=== PATIENT | male | born 1935 | race Two or more races ===

== ENCOUNTER → 2018-02-12 08:07 | Outpatient (CLI) | payer MEDICARE, SELFPAY ==
--- NOTE | 2018-02-12 08:23 | FL_ITS ---
EXAM: Barium swallow/esophagram. INDICATION: ITS.REASON: difficulty swallowing ORDERING PHYSICIAN: Juanito Posada MD PATIENT AGE: 82 years COMPARISON: None TECHNIQUE: In the upright position the patient was observed to swallow barium in both the AP and lateral view. The cervical esophagus was examined under fluoroscopy with images obtained. The patient was then placed prone in the right anterior oblique position and was observed to swallow barium with Valsalva technique . FLUOROSCOPY TIME: 1 minute and 20 seconds FINDINGS: There was no evidence of aspiration. There was normal peristalsis. No filling defects or mucosal abnormalities. No masses or strictures. There is a small sliding hiatal hernia IMPRESSION: Small sliding hiatal hernia otherwise negative barium swallow
[2018-02-12 09:14] LABS: Free T4 (Free Thyroxine) 1.13 ng/dl (0.76-1.46); Thyroid Stimulating Hormone 0.46 uIU/ml (0.358-3.740)
[2018-02-13 16:05] LABS: Thyroid Peroxidase Antibodies 27 IU/mL (0-34); Thyroid Stimulating Immunoglob <0.10 IU/L (0.00-0.55)
== END ==
PROVIDERS: PCP Family Medicine; Visit Provider Otolaryngology
DX: R13.10 Dysphagia, unspecified (principal); R49.0 Dysphonia; E03.9 Hypothyroidism, unspecified
CPT/HCPCS: 36415; 74220; 84439; 84443; 84445; 86376

== ENCOUNTER → 2018-11-01 13:23 | Outpatient (CLI) | payer MEDICARE, SELFPAY ==
--- NOTE | 2018-11-01 13:51 | XR_ITS ---
XR chest 2V HISTORY: ITS.REASON: dyspnea ORDERING PHYSICIAN: Jayant Groves MD PATIENT AGE: 83 years COMPARISON: None FINDINGS: The cardiomediastinal silhouette and pulmonary vascularity are within normal limits. Coronary artery stents are present. The lungs are clear without infiltrates, suspicious nodules, or pleural effusions. Mild biapical pleural thickening noted No acute bony abnormalities. IMPRESSION: Coronary artery stents are present, no acute finding
[2018-11-01 14:03] LABS: Basophils # 0.1 K/mm3 (0-0.2); Basophils % 0.8 % (0.1-2.0); Eosinophils # 0.4 K/mm3 (0.0-0.4); Hematocrit 44.9 % (42.0-52.0); Hemoglobin 14.6 g/dL (14.1-18.0); Lymphocytes # 1.9 K/mm3 (0.7-4.5); Lymphocytes % 28.5 % (10-50); Mean Corpuscular HGB Conc 32.4 g/dL (31.8-35.4); Mean Corpuscular Hemoglobin 29.9 pg (27.0-31.2); Mean Corpuscular Volume 92.2 fl (80-94); Mean Platelet Volume 7.7 fl (7.4-10.4); Monocytes # 0.3 K/mm3 (0.1-1.0); Monocytes % 3.8 % (1.7-9.3); Neutrophils % 60.8 % (37.0-80.0); Platelet Count 205 K/mm3 (142-424); Red Blood Count 4.87 M/mm3 (4.60-6.20); Red Cell Distribution Width 14.1 % (11.5-17.5); White Blood Count 6.5 K/mm3 (4.8-10.8)
--- NOTE | 2018-11-01 14:33 | CA_ITS ---
PROCEDURE: 2-D M-mode and color Doppler study INDICATIONS FOR THE TEST: Chest pain X COPD Heart Murmur Tobacco Smoking Palpitations Fatigue Syncope Edema HypertensionXDiabetes Mellitus Rheumatic Fever SOBXDOEXObesity HyperlipidemiaX Family History HD Additional History CAD,CABG,NUMEROUS STENTS PATIENT INFORMATION HEIGHT: 66 WEIGHT:147 GENDER: Male B/P:183/86 2-D/M-MODE INTERPRETATION: 2-D MEASUREMENTS OBSERVED VALUES IN CMS Right Ventricular Dimension (RVDd) 2.2 Interventricular Septum (Thickness)(IVsd) 1.2 Left Ventricular Internal Dimensions(LVIDd) 4.1 Left Ventricular Posterior Wall (Thickness)(LVPWd) 1.2 Aortic Root 3.6 Aortic Cusp Separation 1.3 Left Atrial Dimensions (LAD) 4.5 2D 1. Left atrium is mildly enlarged, left ventricle is normal size, moderate concentric left ventricular hypertrophy, visually estimated ejection fraction 55% with no regional wall motion abnormality. 2. The right atrium and right ventricle are normal size and contractility. 3. The aortic valve is thickened and calcified leaflet continue to display mobility. 4. The mitral valve has mitral annular calcification, leaflets are minimally thickened. 5. The tricuspid valve is grossly normal. 6. The pulmonic valve is poorly visualized. 7. No significant pericardial effusion noted. DOPPLER INTERROGATION: Doppler interrogation of the aortic, mitral and tricuspid valvular presence of mild aortic, mild mitral and tricuspid regurgitation, tricuspid regurgitation jet velocity is inadequate for calculation of the right ventricular systolic pressure, grade 2 diastolic dysfunction seen with tissue Doppler evidence of raised left atrial pressure. CONCLUSION: 1. Mildly enlarged left atrium, normal left ventricular size, moderate concentric left ventricular hypertrophy, visually estimated ejection fraction of 55% with no regional wall motion abnormality, grade 2 diastolic dysfunction seen with tissue Doppler evidence of raised left atrial pressure. 2. Thickened and calcified aortic valve without Doppler evidence of aortic stenosis, there is mild aortic insufficiency. 3. Mild mitral and tricuspid regurgitation. 4. No significant pericardial effusion noted.
[2018-11-01 15:03] LABS: Bilirubin,Direct 0.2 mg/dL (0.0-0.2)
[2018-11-01 15:09] LABS: Alanine Aminotransferase 29 U/L (12-78); Albumin Level 3.8 gm/dL (3.4-5.0); Albumin/Globulin Ratio 1.1 (1.1-1.8); Alkaline Phosphatase 90 U/L (46-116); Anion Gap 12.7 mEq/L (5-15); Aspartate Amino Transferase 26 U/L (15-37); Bilirubin,Total 1.2 mg/dL (0.2-1.0); Blood Urea Nitrogen 20 mg/dL (7-18); Calcium 9.4 mg/dL (8.5-10.1); Carbon Dioxide 28 mmol/L (21.0-32.0); Chloride 102 mmol/L (98-107); Creatinine,Serum 1.12 mg/dL (0.70-1.30); Estimated Glomerular Filt Rate 63 ml/min (>60); Free T4 (Free Thyroxine) 1.38 ng/dl (0.76-1.46); GFR (African American) 76 ML/MIN (>60); Globulin 3.4 gm/dl (1.3-3.2); Glucose 127 mg/dL (74-106); Potassium 3.7 mmoL/L (3.5-5.1); Sodium 139 mmol/L (136-145); Thyroid Stimulating Hormone 0.15 uIU/ml (0.358-3.740); Total Protein,Serum 7.2 gm/dL (6.4-8.2)
== END ==
PROVIDERS: PCP Family Medicine; Visit Provider Internal Medicine
DX: I11.9 Hypertensive heart disease without heart failure; E78.49 Other hyperlipidemia; I25.10 Atherosclerotic heart disease of native coronary artery without angina pectoris; I48.0 Paroxysmal atrial fibrillation; R06.02 Shortness of breath; R07.89 Other chest pain; Z95.1 Presence of aortocoronary bypass graft
CPT/HCPCS: 36415; 71046; 80053; 82248; 83880; 84439; 84443; 85025; 93306

== ENCOUNTER → 2019-04-24 12:56 | Outpatient (CLI) | payer MEDICARE, SELFPAY ==
--- NOTE | 2019-04-24 13:02 | US_ITS ---
APPROVED REPORT Exam Type: Ankle to Brachial Index Customer Quality Engineer: RT Isela(R) Indications Claudication: Bilaterally Rest Pain: Right CAD Risk Factors Hypertension CAD Hyperlipidemia TIA/CVA History History of Smoking Pressures/Indices Right Indices Left Indices Brachial 226.00 mmHg Brachial 225.00 mmHg Low Thigh 230.00 mmHg 1.02 Low Thigh 227.00 mmHg 1.00 Calf 226.00 mmHg 1.00 Calf 224.00 mmHg 0.99 Ankle(PT) 236.00 mmHg 1.04 Ankle(PT) 224.00 mmHg 0.99 Ankle(DP) 227.00 mmHg 1.00 Ankle(DP) 172.00 mmHg 0.76 Digit 165.00 mmHg 0.73 Digit 143.00 mmHg 0.63 Conclusion RT YOSVANY=1.0 LT YOSVANY=1.0 RT TBI=0.7 LT TBI=0.6 Normal pulses Normal wavefoms No evidence significant arterial disease throughout the right and left lower extremities as evidenced by normal resting PVR waveforms and normal resting indices. Electronically signed by : Fabio Courtney MD 04/26/2019 17:35:44
--- NOTE | 2019-04-24 13:02 | CT_ITS ---
PROCEDURE: CT HEAD/BRAIN WO CON CLINICAL INDICATION: tia TIAs, pain COMPARISON: No exams were available for comparison TECHNIQUE: Axial images obtained. All CT scans at the facility use one or more dose reduction, viz: automated exposure control, ma/kV adjustment per patient size (including targeted exams where dose is matched to indication, i.e. head), or iterative reconstruction technique. FINDINGS: No midline shift, mass effect, intracranial hemorrhage, hydrocephalus, or extra-axial fluid collection is evident. There is generalized atrophy with hypoattenuation of the periventricular white matter consistent with microangiopathic changes. The calvarium has an unremarkable appearance. No mastoid effusion. No sinus air-fluid level. There is generalized atrophy with hypoattenuation of the periventricular white matter consistent with microangiopathic changes.. No midline shift mass effect or hydrocephalus. There is a small area of increased density in the left occipital region in the subdural area. This has a straight transverse edge and could represent a hematoma fluid level which may be seen with subdural hematomas. Consider MRI of the brain for further evaluation for confirmation. No other significant anomalies are evident IMPRESSION: Possible heme fluid level in the left occipital lobe raising the suspicion of a small subdural hematoma. I suppose this could represent some type of artifact from the adjacent dural sinus. Suggest MRI of the brain for further evaluation. Significant findings called to Dr. Groves 04/24/2019 at 4:35 p.m. Dictated by: Fabio Courtney MD 04/24/2019 16:39 Electronically signed by Fabio Courtney MD in [place] 04/24/2019 16:39
== END ==
PROVIDERS: PCP Family Medicine; Visit Provider Internal Medicine
DX: G45.9 Transient cerebral ischemic attack, unspecified (principal); I73.9 Peripheral vascular disease, unspecified; M79.604 Pain in right leg; M79.605 Pain in left leg
CPT/HCPCS: 70450; 93923

== ENCOUNTER → 2019-10-22 09:46 | Outpatient (CLI) | payer MEDICARE, SELFPAY ==
--- NOTE | 2019-10-22 09:48 | CA_ITS ---
APPROVED REPORT Press Operator: MICHAELA Laterality: Bilateral Study Quality: FairTechnically Difficult, Due to . Indications: SEAN, CAD, hx of CABG, HTN, HLD, dizziness, AFIB Risk Factors Hypertension: years Hyperlipidemia Doppler Spectral Velocity Analysis ECA (R) 111.40/14.60 cm/s ECA (L) 76.40/10.90 cm/s dICA (R) 59.10/16.50 cm/s dICA (L) 71.10/14.60 cm/s pICA (R) 150.80/18.00 cm/s Shakir (L) 76.30/18.80 cm/s pICA (L) 79.70/16.30 cm/s dCCA (R) 55.60/12.30 cm/s pCCA (R) 72.70/10.70 cm/s dCCA (L) 63.70/10.30 cm/s ICA/CCA 2.70 pCCA (L) 95.10/12.90 cm/s Vert (L) 52.30/12.00 cm/s ICA/CCA 1.30 Conclusion Duplex evaluation demonstrates stenosis of the right proximal internal carotid artery in the range of 50-69% Duplex evaluation demonstrates stenosis of the left proximal internal carotid artery in the range of 20-49% Electronically signed by : Fabio Courtney MD 10/22/2019 19:04:31
== END ==
PROVIDERS: PCP Family Medicine; Visit Provider Nurse Practitioner Family
DX: R42 Dizziness and giddiness; I65.23 Occlusion and stenosis of bilateral carotid arteries; M54.2 Cervicalgia
CPT/HCPCS: 93880

== ENCOUNTER → 2020-01-07 10:29 | Outpatient (CLI) | payer MEDICARE, SELFPAY ==
[2020-01-07 11:24] LABS: Basophils % 0.6 % (0.1-2.0); Eosinophils # 0.4 K/mm3 (0.0-0.4); Eosinophils % 5.6 % (0.1-12.0); Hematocrit 45.9 % (42.0-52.0); Lymphocytes # 1.8 K/mm3 (0.7-4.5); Lymphocytes % 25.2 % (10-50); Mean Corpuscular HGB Conc 32.8 g/dL (31.8-35.4); Mean Corpuscular Hemoglobin 30.6 pg (27.0-31.2); Mean Corpuscular Volume 93.5 fl (80-94); Mean Platelet Volume 8.5 fl (7.4-10.4); Monocytes # 0.3 K/mm3 (0.1-1.0); Monocytes % 4.2 % (1.7-9.3); Neutrophils # 4.5 K/mm3 (1.8-7.8); Neutrophils % 64.4 % (37.0-80.0); Platelet Count 192 K/mm3 (142-424); Red Blood Count 4.91 M/mm3 (4.60-6.20); Red Cell Distribution Width 14.4 % (11.5-17.5)
[2020-01-07 11:40] LABS: Chloride 100 mmol/L (98-107); Potassium 5.2 mmoL/L (3.5-5.1); Sodium 139 mmol/L (136-145)
[2020-01-07 11:43] LABS: Anion Gap 13.2 mEq/L (5-15); Blood Urea Nitrogen 19 mg/dl (9-20); Calcium 9.8 mg/dl (8.4-10.2); Carbon Dioxide 31 mmol/L (22.0-30.0); Estimated Glomerular Filt Rate 64 ml/min (>60); GFR (African American) 77 ML/MIN (>60); Glucose 95 mg/dl (74-100)
== END ==
PROVIDERS: Visit Provider Internal Medicine
DX: R06.02 Shortness of breath; E78.2 Mixed hyperlipidemia; G45.9 Transient cerebral ischemic attack, unspecified; I11.9 Hypertensive heart disease without heart failure; I25.118 Atherosclerotic heart disease of native coronary artery with other forms of angina pectoris; I48.0 Paroxysmal atrial fibrillation; M54.2 Cervicalgia; R60.9 Edema, unspecified
CPT/HCPCS: 36415; 80048; 85025

== ENCOUNTER → 2021-11-01 11:53 | Outpatient (CLI) | payer MEDICARE, SELFPAY ==
[2021-11-01 12:11] LABS: Coronavirus 19, PCR Not Detected (NotDetected); Influenza A, PCR Not Detected (NotDetected); Influenza B, PCR Not Detected (NotDetected)
== END ==
PROVIDERS: PCP Family Medicine; Visit Provider Internal Medicine
DX: Z01.812 Encounter for preprocedural laboratory examination; Z11.52 Encounter for screening for COVID-19; R06.02 Shortness of breath; I20.8 Other forms of angina pectoris; I48.0 Paroxysmal atrial fibrillation; I65.23 Occlusion and stenosis of bilateral carotid arteries; I73.00 Raynaud's syndrome without gangrene; R60.9 Edema, unspecified
CPT/HCPCS: C9803; U0003; U0005

== ENCOUNTER 2021-11-11 06:24 | Observation (INO) | payer MEDICARE, SELFPAY ==
[2021-11-08 13:55] VITALS: BMI 24.7
[2021-11-11] VITALS (17 sets, daily range): BP systolic 104–192; BP diastolic 61–110; PULSE 50–85; RESP 18–20; TEMP 36.3–36.7; O2SAT 92–96; BMI 24.8; BMI 24.5
--- NOTE | 2021-11-11 06:55 | HMH.ANESCL ---
[facility] Anesthesia Checklist - Patient Identification Patient Identification: Arm Band - Structural Data Admitted From: Home Planned Operative Procedure/s: Peg placement Consent for Planned Operative Procedure(s) Verified: Yes - NPO Status Verified Time NPO: 00:00 - Additional verifications Anesthesia Reactions: No Hx Blood Transfusions: Yes Blood Transfusion Reaction: No - Airway Assessment C-Spine Mobility Assessed: Yes TMJ Mobility Assessed: Yes Dentition: Dentures-good fit - Neurological Assessment Level of Consciousness: Awake Hx Seizures: No Numbness or tingling in extremities: No - Anesthesia Plan Anesthesia Risk discussed: Yes Anesthesia Plan: Verified ASA Class: III Anesthesia Type: MAC [facility] History I have reviewed the patient's past medical history: Yes Medical History: Reports:: Atrial Fibrillation, Chronic Obstructive Pulmonary Disease (COPD), Coronary Artery Disease, Gastroesophageal Reflux Disease(GERD), Hyperlipidemia, Hypertension Denies:: Cancer, Diabetes Mellitus Type 1, Diabetes Mellitus Type 2, Internal Pacemaker, MRSA, Seizures *Have you ever received a pneumonia vaccine?: Yes *Have you received a flu vaccine this season?: Yes Other Medical History: Reports: Hypothyroidism. Denies: Blood Transfusion Reaction Anesthesia experience/problems:: None Laterality Cases: Right: Arthroscopy Shoulder, Bilateral: Other Other Surgeries: Yes: No Previous Surgery, Angioplasty, Appendectomy, Cardiac Catheterization, Colonoscopy, Hernia Repair. No: Pacemaker Amputation: No Fractures: Yes - *Social History Last grade of school completed: High school graduate Smoking Status: Never smoker Alcohol Intake: never Substance Use Type: denies use *Occupational Status:: unemployed, disabled Housing: house *Travel in the last 8 weeks: None Family Hx:: Heart Attack
[2021-11-11 07:00] LABS: Coronavirus 19, PCR Not Detected (NotDetected); Influenza A, PCR Not Detected (NotDetected); Influenza B, PCR Not Detected (NotDetected)
--- NOTE | 2021-11-11 07:15 | HMH.GSHP ---
HPI HPI: This is an 86-year-old gentleman with increasing feeding difficulty. He has been diagnosed with significant esophageal spasm with associated dysphagia. Over the past few months he has had fairly significant weight loss. The cardiology service has requested percutaneous endoscopic gastrostomy tube placement. [facility] History Medical History: Reports:: Atrial Fibrillation, Chronic Obstructive Pulmonary Disease (COPD), Coronary Artery Disease, Gastroesophageal Reflux Disease(GERD), Hyperlipidemia, Hypertension Denies:: Cancer, Diabetes Mellitus Type 1, Diabetes Mellitus Type 2, Internal Pacemaker, MRSA, Seizures *Have you ever received a pneumonia vaccine?: Yes *Have you received a flu vaccine this season?: Yes Other Medical History: Reports: Hypothyroidism. Denies: Blood Transfusion Reaction Anesthesia experience/problems:: None Laterality Cases: Right: Arthroscopy Shoulder, Bilateral: Other Other Surgeries: Yes: No Previous Surgery, Angioplasty, Appendectomy, Cardiac Catheterization, Colonoscopy, Hernia Repair. No: Pacemaker Amputation: No Fractures: Yes - *Social History Last grade of school completed: High school graduate Smoking Status: Never smoker Alcohol Intake: never Substance Use Type: denies use *Occupational Status:: unemployed, disabled Housing: house *Travel in the last 8 weeks: None Family Hx:: Heart Attack Review of Systems - Constitutional Denies body ache(s) - Eyes Denies change in vision - ENT Reports difficulty swallowing - *Cardiovascular Denies chest pain - *Respiratory Denies cough - *Gastrointestinal Denies abdominal pain - *Genitourinary Denies difficulty urinating - *Musculoskeletal Denies deformity - Integumentary/Breasts Denies new lesions - *Neurologic Denies abnormal movements - Psychiatric Denies anxiety - Endocrine Denies cold intolerance - Hematologic/Lymphatic Denies easy bleeding - Allergic/Immunologic Denies GI upset with certain foods Meds Home Medications Medication Instructions Recorded Confirmed Type finasteride 5 mg tablet 5 mg PO DAILY 06/19/19 11/01/21 History nitroglycerin 0.4 mg sublingual 0.4 mg SUBLINGUAL Q5M PRN #30 tab 04/22/20 11/01/21 Rx tablet clopidogrel 75 mg tablet 75 mg PO DAILY tab 07/07/20 11/01/21 History prednisone 10 mg tablet 10 mg PO DAILY tab 07/07/20 11/01/21 History carbidopa ER 25 mg-levodopa 100 mg 2 tab PO QID tab 08/27/20 11/01/21 History tablet,extended release hydrocodone 5 mg-acetaminophen 325 1 tab PO DAILY PRN tab 08/27/20 11/01/21 History mg tablet pantoprazole 40 mg tablet,delayed 40 mg PO DAILY tab 08/27/20 11/01/21 History release clonidine HCl 0.1 mg tablet 0.1 mg PO TID PRN #90 tab 11/01/21 11/01/21 Rx levothyroxine 112 mcg tablet 112 mcg PO DAILY tab 11/01/21 11/01/21 History Budesonide/Formoterol Fumarate 2 puff IH BID 11/11/21 History [Symbicort 160-4.5 Mcg Inhaler] Sulfamethoxazole/Trimethoprim 1 tab PO BID 11/11/21 History [Sulfamethoxazole-Tmp Ds Tablet*] Allergies Allergy/AdvReac Type Severity Reaction Status Date / Time ketorolac Allergy Verified 11/01/21 11:07 Penicillins Allergy Verified 11/01/21 11:07 tamsulosin AdvReac Verified 11/01/21 11:07 Exam Vital signs and Labs for Last 24 Hours: Temp Pulse Resp BP Pulse Ox 97.8 F 70 18 171/97 H 95 11/11/21 06:37 11/11/21 06:37 11/11/21 06:37 11/11/21 06:37 11/11/21 06:37 I & O for Last 24 hours: Intake & Output 11/08/21 11/09/21 11/10/21 11/11/21 11:59 11:59 11:59 11:59 Weight 135 lb - Constitutional no acute distress - *Routine HEENT Exam Head: Present: normocephalic Eye: Present: EOMI ENT: Present: mucous membranes moist - *Routine Neck Exam Present: full ROM - Routine Chest/Breast/Axilla Exam Chest wall: Absent: tenderness - *Routine Respiratory Exam Absent: respiratory distress - *Routine Cardiovascular Exam Absent: tachycardia - *
--- NOTE | 2021-11-11 07:41 | HMH.SCOPE ---
- Procedure: Date: 11/11/21 Patient Date of :: 1935 Procedure Performed:: Percutaneous endoscopic gastrostomy tube placement Esophagogastroscopy with biopsy Indications:: Feeding difficulty Esophageal spasm Dysphagia Performing Provider:: Kvng Meza MD Referring Provider:: Dr. Groves Sedation:: Monitored anesthesia care Procedure:: After informed consent was obtained the patient was taken to the endoscopy suite. Sedation ensued after the patient was transferred to the left lateral decubitus position. Pulse, blood pressure, and oxygen saturation were monitored throughout the procedure. The endoscope was advanced into the gastric lumen. After insufflation completed transillumination and impulse both confirmed. After infiltration local anesthetic a small transverse incision was made at the site of maximal impulse/transillumination. A large bore Angiocath was placed into the gastric lumen under direct visualization. The guidewire was placed through the Angiocath and retrieved via snare. The gastrostomy tube was secured to the snare and then pulled through. The gastrostomy tube was secured at 3 cm. The endoscope was readvanced. The bumper was in good position. No active bleeding was noted. Retroflexion revealed a polypoid small mass-like lesion in the proximal gastric body. Multiple biopsies obtained. The gastroscope was carefully removed and the patient was transferred to recovery in stable condition. Please see findings and specimens below for detail. Findings:: PEG anchored at 3 cm Lobulated polypoid small mass-like lesion in the proximal gastric body biopsied Specimens:: Multiple biopsies of proximal gastric body lobulated polypoid lesion Recommendations:: Post PEG orders written Follow-up pathology Complications:: No immediate Estimated blood obtained (mL): 5
--- NOTE | 2021-11-11 07:44 | HMH.PHAVTE ---
[facility] Pharmacy VTE Monitoring - Patient Demographics Admission date: 11/11/21 Report Date: 11/11/21 Time: 07:44 Allergies/Adverse Reactions: Patient Allergies ketorolac Allergy (Verified 11/01/21 11:07) Penicillins Allergy (Verified 11/01/21 11:07) tamsulosin Adverse Reaction (Verified 11/01/21 11:07) Height: 1.57 m Weight: 61.235 kg Patient Problems: Current Active Problems Feeding difficulty (Acute) Esophageal spasm (Acute) Dysphagia (Acute) - VTE Risk Clinical Trial Participant: No - Prophylaxis VTE Prophylaxis Ordered?: Yes Types of VTE Prophylaxis: TEDS Knee High
--- NOTE | 2021-11-11 10:26 | DIET.NUTRFU ---
Addendum entered by Mila Perez RD, LD 11/11/21 11:00: based on reported hx, can start regular diet when medically appropriate. IVF started post op. Original Note: S/p PEG placement, RD consulted. Spoke to in great depth about diet at home. Patient eats 3 meals/day, breakfast and dinner being large. He has been maintaining weight at 134#. Denies any chewing or swallowing difficulty with solids, but with liquids sometimes he chokes. She reports milk and ice cream are the worst d/t the extra phloem. She said he has been to [facility] in the past, they have tried thickened liquids but he will not drink them, he has also had botox to vocal cords for temporary improvement. Was noted to have PNA earlier this year, no indication of aspiration. He takes his pills orally with water, no issues. Hydration is the concern, will start with a flush. At home she indicated he drinks 1 cups of coffee with breakfast and then 1/2 of sprite and then just sips all day but nothing significant, she said maybe 2-3 8oz of fluid/day. Based on CBW of 134# his fluid needs with no hx of CHF are ~1800ml/day. Therefore will start with 300ml 5xday, it is recommended to change syringe every 2 days therefore will need 15-20/month syringes/month. Nursing to teach administration techniques. Spoke to clinical social worker about supplies may need at home-syringes. Encouraged to follow up with PCP if patient declines in meal intake, looses weight or swallowing issues worsen, at that point he may need feedings via PEG. Denies any issues of N/V or constipation/diarrhea. Has hx of SBO with resection, he still eats nuts and raw salads but dislikes most fruit. Reviewed POC with nursing.
--- NOTE | 2021-11-11 10:58 | HMH.PHAINT ---
MEDICATION RECONCILIATION COMPLETED ON PATIENT USING EXTERNAL FILL HISTORY FROM PHARMACY. -CORY LADD, YASD
--- NOTE | 2021-11-11 16:12 | PC.NURSE ---
RN aware of elevated bp.
[2021-11-12] VITALS: BP 153/87; PULSE 75; RESP 20; TEMP 36.7; O2SAT 93
[2021-11-12 04:00] VITALS: BP 136/78; PULSE 78; RESP 20; TEMP 36.8; O2SAT 94
--- NOTE | 2021-11-12 04:56 | PC.NURSE ---
PT S/P PEG PLACEMENT, PEG TUBE REMAINS AT 3 TO HOOD BAG, DRSG CDI WITH ABD BINDER IN PLACE, PT ALERT TO NAME, BUT CONFUSED AT TIMES TO PLACE AND TIME, VSS, B/P DOWN AFTER CLONIDINE GIVEN ON DAY SHIFT, PT INCONTINENT, NO OTHER ISSUES NOTED
[2021-11-12 05:00] VITALS: BMI 25.7
--- NOTE | 2021-11-12 06:58 | HMH.GSPN ---
Subjective Patient reports: no new complaints Progress Note: A&P (1) Feeding difficulty Status: Acute (2) Esophageal spasm Status: Acute (3) Dysphagia Status: Acute Assessment and Plan for All Diagnoses:: Discussed with Dr. Meza all orders per Dr. Meza. Exam Vital signs and Labs for Last 24 Hours: Temp Pulse Resp BP Pulse Ox 98.2 F 78 20 136/78 94 L 11/12/21 04:00 11/12/21 04:00 11/12/21 04:00 11/12/21 04:00 11/12/21 04:00 Laboratory Results - last 24 hr 11/11/21 06:55: SARS-CoV-2 (PCR) Not detected, Influenza A Untype (PCR) Not detected, Influenza Type B (PCR) Not detected I & O for Last 24 hours: Intake & Output 11/09/21 11/10/21 11/11/21 11/12/21 11:59 11:59 11:59 11:59 Intake Total 3069 / 3069 Balance 3069 / 3069 Weight 135 lb 134 lb 15.825 oz 139 lb 9.6 oz - *Routine Abdominal Exam Present: soft Comments: PEG site clean. No appreciable tenderness.
--- NOTE | 2021-11-12 07:26 | HMH.DCSUM ---
General - General Admission date:: 11/11/21 Discharge date: 11/12/21 HPI HPI: This is an 86-year-old gentleman with increasing feeding difficulty. He has been diagnosed with significant esophageal spasm with associated dysphagia. Over the past few months he has had fairly significant weight loss. The cardiology service has requested percutaneous endoscopic gastrostomy tube placement. Hospital Course Hospital Course: The patient underwent PEG placement (see procedure report for detail). The Dietary Service was consulted for initiation of tube feeds. He did receive Clonidine as needed for elevated blood pressure. He showed no evidence of procedural complication and was deemed appropriate for discharge on the morning of POD1. Condition at discharge: At the time of discharge he was afebrile with stable and normal vital signs. NOTE: PEG anchored at 3cm. Objective Vital signs: Temp Pulse Resp BP Pulse Ox 98.2 F 78 20 136/78 94 L 11/12/21 04:00 11/12/21 04:00 11/12/21 04:00 11/12/21 04:00 11/12/21 04:00 no acute distress - *Routine HEENT Exam Head: Present: normocephalic Eye: Present: EOMI ENT: Present: mucous membranes moist - *Routine Neck Exam Present: full ROM - Routine Chest/Breast/Axilla Exam Chest wall: Absent: tenderness - *Routine Respiratory Exam Absent: respiratory distress - *Routine Cardiovascular Exam Absent: tachycardia - *Routine Abdominal Exam Present: soft - *Routine Rectal Exam Patient deferred: visual exam - *Routine Exam Patient deferred: penile exam - *Routine Extremities Exam Absent: cyanosis - Routine Back/Spine/Pelvis Exam Back/Spine: Present: full ROM - *Routine Skin Exam Absent: erythema - *Routine Neurological Exam Present: alert - Routine Psychiatric Exam Present: normal affect DS: Diagnosis - Discharge Diagnosis (1) Feeding difficulty Status: Acute (2) Esophageal spasm Status: Acute (3) Dysphagia Status: Acute Discharge Plan - Patient Discharge Instructions ACTIVITY: Continue current activity DIET: other (as per dietary ) Patient Instructions: How to Care for Your PEG Tube, DI for Percutaneous Endoscopic Gastrostomy (PEG), DI for Surgical Site Infection - Follow up Plan Follow up with: Kvng Meza MD [Staff Physician] - (1-2 weeks) Disposition: Home, Self-Care Condition at discharge:: Stable Home Medications: Home Medications Medication Instructions Recorded Confirmed Type finasteride 5 mg tablet 5 mg PO DAILY 06/19/19 11/11/21 History nitroglycerin 0.4 mg sublingual 0.4 mg SUBLINGUAL Q5M PRN #30 tab 04/22/20 11/11/21 Rx tablet clopidogrel 75 mg tablet 75 mg PO DAILY tab 07/07/20 11/11/21 History prednisone 10 mg tablet 10 mg PO DAILY tab 07/07/20 11/11/21 History carbidopa ER 25 mg-levodopa 100 mg 2 tab PO QID tab 08/27/20 11/11/21 History tablet,extended release hydrocodone 5 mg-acetaminophen 325 1 tab PO DAILYP PRN tab 08/27/20 11/11/21 History mg tablet pantoprazole 40 mg tablet,delayed 40 mg PO BID tab 08/27/20 11/11/21 History release levothyroxine 112 mcg tablet 112 mcg PO DAILY tab 11/01/21 11/11/21 History cloNIDine HCL [cloNIDine 0.1mg 0.1 mg PO TIDP PRN 11/11/21 11/11/21 History Tablet] Prescriptions/Medication Reconciliation: Continued nitroglycerin 0.4 mg sublingual tablet 0.4 mg SUBLINGUAL Q5M PRN #30 tab PRN Reason: chest pain clopidogrel 75 mg tablet 75 mg PO DAILY tab carbidopa ER 25 mg-levodopa 100 mg tablet,extended release 2 tab PO QID tab pantoprazole 40 mg tablet,delayed release 40 mg PO BID tab levothyroxine 112 mcg tablet 112 mcg PO DAILY tab finasteride 5 mg tablet 5 mg PO DAILY prednisone 10 mg tablet 10 mg PO DAILY tab hydrocodone 5 mg-acetaminophen 325 mg tablet 1 tab PO DAILYP PRN tab PRN Reason: pain cloNIDine HCL [cloNIDine 0.1mg Tablet] 0.1 mg PO TIDP PRN PRN Reason: hype
[2021-11-12 08:00] VITALS: BP 154/80; PULSE 75; RESP 18; TEMP 36.6; O2SAT 94; O2SAT 95
--- NOTE | 2021-11-12 09:35 | SW/DCPLANNER ---
Addendum entered by Vidhya Shanks 11/12/21 09:59: [facility] stated that services will start Monday for this patient. Nursing staff has educated on peg tub flushes during admission. Original Note: Patient information/order has been faxed to [facility] for : peg tube education/SN/PT/OT. Per patient's request patient information/order has been faxed to [facility]. I will follow up with [facility] once information is reviewed. Patient will discharge home later today.
--- NOTE | 2021-11-12 09:37 | DIET.NUTRFU ---
Patient plans to discharge today, nursing reports he tolerated flush. received teaching on the flush and PEG care. Also was setup with homecare to complete any further teaching needed and and to address any issues in home setting. Patient was started on regular diet for lunch and dinner yesterday and consumed 50% with no issues. As Parkinson's advances patient may need nutritional support via PEG, but did not seem necessary at this time d/t stable wt and reported good intake with only concern of hydration. Flush ordered 300ml 5xday, nursing suggested coordinate that with his sinemet dose. This RD continues to be available for any questions or concerns
--- NOTE | 2021-11-15 15:22 | CARE MANAGER ---
Post-discharge phone call with patient, states doing well and has no needs at this time. Home Health is coming and he is utilizing PEG tube as ordered.
== END 2021-11-12 09:09 | disposition home or self-care (01) ==
LOC: 2ND 06:25
PROVIDERS: Admitting Provider Surgery; PCP Family Medicine; Visit Provider Surgery
PROC: 0DH63UZ Insertion of Feeding Device into Stomach, Percutaneous Approach (ICD-10-PCS; CPT 43246; principal; 2021-11-11 07:30)
DX: K22.4 Dyskinesia of esophagus (principal); R63.30 Feeding difficulties, unspecified; R13.10 Dysphagia, unspecified; K21.9 Gastro-esophageal reflux disease without esophagitis; I25.10 Atherosclerotic heart disease of native coronary artery without angina pectoris; J44.9 Chronic obstructive pulmonary disease, unspecified; I48.91 Unspecified atrial fibrillation; I10 Essential (primary) hypertension; E78.5 Hyperlipidemia, unspecified; Z79.899 Other long term (current) drug therapy; Z20.822 Contact with and (suspected) exposure to COVID-19
CPT/HCPCS: 43246; 43254; G0378; 88305; 96374; C9803; U0003; U0005

== ENCOUNTER → 2022-04-12 12:08 | Outpatient (CLI) | payer MEDICARE, SELFPAY ==
[2022-04-12 13:56] LABS: Basophils % 0.4 % (0.1-2.0); Eosinophils % 0.3 % (0.1-12.0); Hematocrit 52.1 % (42.0-52.0); Hemoglobin 15.9 g/dL (14.1-18.0); Lymphocytes # 0.6 K/mm3 (0.7-4.5); Lymphocytes % 8.6 % (10-50); Mean Corpuscular HGB Conc 30.6 g/dL (31.8-35.4); Mean Corpuscular Hemoglobin 32.1 pg (27.0-31.2); Mean Corpuscular Volume 105.1 fl (80-94); Mean Platelet Volume 8.9 fl (7.4-10.4); Monocytes # 0.3 K/mm3 (0.1-1.0); Monocytes % 4.5 % (1.7-9.3); Neutrophils % 86.2 % (37.0-80.0); Platelet Count 182 K/mm3 (142-424); Red Blood Count 4.95 M/mm3 (4.60-6.20); Red Cell Distribution Width 14.1 % (11.5-17.5); White Blood Count 6.9 K/mm3 (4.8-10.8)
[2022-04-12 14:08] LABS: MANUAL DIFFERENTIAL MANUAL DIFFERENTIAL (MANUAL DIFF)
[2022-04-12 14:12] LABS: Chloride 98 mmol/L (98-107); Potassium 3.8 mmoL/L (3.5-5.1); Sodium 140 mmol/L (136-145)
[2022-04-12 14:14] LABS: Blood Urea Nitrogen 21 mg/dl (9-20); Estimated Glomerular Filt Rate 128 ml/min (>60); GFR (African American) 155 ML/MIN (>60)
[2022-04-12 14:15] LABS: Alanine Aminotransferase 6 U/L (12-78); Albumin/Globulin Ratio 1.7 (1.1-1.8); Alkaline Phosphatase 69 U/L (38-126); Anion Gap 9.8 mEq/L (5-15); Aspartate Amino Transferase 22 U/L (17-59); Bilirubin,Total 1.1 mg/dl (0.2-1.3); Calcium 8.8 mg/dl (8.4-10.2); Carbon Dioxide 36 mmol/L (22.0-30.0); Chol/HDL Ratio 4.8 (1-3.5); Cholesterol 226 mg/dl (140-200); Globulin 2.4 g/dL (1.3-3.2); Glucose 99 mg/dl (74-100); HDL Cholesterol 47 mg/dl (40-60); Total Protein,Serum 6.4 g/dl (6.3-8.2); Triglycerides 169 mg/dl (30-150); VLDL Cholesterol 34 mg/dL (0-40)
[2022-04-12 14:16] LABS: Eosinophils % 2 % (0-3); Lymphocytes % 11 % (10-50); Monocytes % 2 % (2-9); Neutrophils % 85 % (42-76); Total Cells Counted 100
[2022-04-12 14:17] LABS: Anisocytosis 1+; Hypochromasia 1+; Macrocytosis 1+; Ovalocytes 1+; Platelet Estimate Normal; Poikilocytosis 1+
[2022-04-12 19:21] LABS: Prostate Specific Ag Screen < 0.1 ng/ml (0.0-4.0)
== END ==
PROVIDERS: PCP Family Medicine; Visit Provider Family Medicine
DX: N23 Unspecified renal colic (principal); R53.83 Other fatigue; I10 Essential (primary) hypertension; Z12.5 Encounter for screening for malignant neoplasm of prostate
CPT/HCPCS: 36415; 80053; 80061; 84443; 85007; 85025; 87086; G0103